=== PATIENT | male | born 1990 | race Caucasian/White ===

== ENCOUNTER 2024-11-03 08:26 | Emergency (ER) | payer OTHER ==
[2024-11-03 09:07] VITALS: BP 112/82; PULSE 64; RESP 20; TEMP 98.1; BMI 29.3
[2024-11-03] MEDS ORDERED: KETOROLAC TROMETHAMINE 30 MG/1 ML VIAL ONE (09:17)
[2024-11-03] MEDS ORDERED: ONDANSETRON 4 MG/2 ML VIAL ONE (09:18)
[2024-11-03 09:22] LABS: ABSOLUTE IMMATURE GRANULOCYTES 0.02 x10^3/uL (0.0-0.031); BASOPHILS # 0.06 x10^3/uL (0.01-0.08); EOSINOPHIL % 1.0 % (0.8-7.0); EOSINOPHILS # 0.08 x10^3/uL (0.04-0.54); MCHC 32.4 g/dl (32.3-36.5); MEAN CELL VOLUME 83.9 fl (79.0-92.2); MEAN PLT VOLUME 11.3 fl (9.4-12.4); MONOCYTE # 0.79 x10^3/uL (0.30-0.82); MONOCYTE % 10.3 % (5.3-12.2); RDW 12.0 % (12.0-15.6)
[2024-11-03] MEDS: KETOROLAC TROMETHAMINE 30 MG/1 ML VIAL IVPUSH ONE (09:22)
[2024-11-03] MEDS: SODIUM CHLORIDE 1,000 ML IV STA (09:23)
[2024-11-03] MEDS: ONDANSETRON 4 MG/2 ML VIAL IVPUSH ONE (09:27)
[2024-11-03 09:31] LABS: INR 1.1 (0.83-1.09); PROTHROMBIN TIME (PATIENT) 12.1 SEC (9.7-13.0)
[2024-11-03 09:34] LABS: ACTIVATED PTT 25.2 SECONDS (25.2-36.5)
[2024-11-03 09:59] LABS: CO2 28.0 mmol/L (21-32); GLUCOSE,RANDOM 92.0 mg/dL (74-106)
[2024-11-03 10:02] LABS: SGOT/AST 28.0 U/L (15-37); SGPT/ALT 43.0 U/L (13-61)
[2024-11-03 10:04] LABS: CREATININE 1.0 mg/dL (0.55-1.3); TOT PROT 6.9 g/dl (6.4-8.2)
[2024-11-03 10:05] LABS: ALK PHOS 99.0 U/L (45-117)
[2024-11-03] MEDS ORDERED: ACETAMINOPHEN 1000 MG/100 ML BAG IVPB ONE (10:16)
[2024-11-03] MEDS ORDERED: SODIUM CHLORIDE 1,000 ML IV STA (10:17)
[2024-11-03 11:18] LABS: EPI CELLS 5 /uL (0-25.1); HYALINE CASTS 2 /uL (0-3.1); URINE APPEARANCE CLEAR; URINE BACTERIA 8 /uL (0-1359); URINE BILIRUBIN NEGATIVE (NEGATIVE); URINE COLOR YELLOW; URINE GLUCOSE (UA) NEGATIVE (NEGATIVE); URINE KETONE NEGATIVE (NEGATIVE); URINE LEUK ESTERASE TRACE (NEGATIVE); URINE NITRITE NEGATIVE (NEGATIVE); URINE PROTEIN 1+ (NEGATIVE); URINE RBC 424 /uL (0-23.9); URINE UROBILINOGEN 1.0 mg/dL (0.2-1.0); URINE WBC 38 /uL (0-25.8)
[2024-11-03 13:48] LABS: HIV INTERPRETATION NEGATIVE (NEGATIVE)
[2024-11-03 13:52] LABS: HCV DIAGNOSTIC IN-HOUSE W/RFLX NON-REACTIVE (NONREACTIVE)
== END 2024-11-03 11:41 | disposition home or self-care (01) ==
LOC: JER 08:26
PROC: 3E0333Z Introduction of Anti-inflammatory into Peripheral Vein, Percutaneous Approach (ICD-10-PCS; principal; 2024-11-03)
PROC: 3E0337Z Introduction of Electrolytic and Water Balance Substance into Peripheral Vein, Percutaneous Approach (ICD-10-PCS; 2024-11-03)
DX: N13.2 Hydronephrosis with renal and ureteral calculous obstruction (principal); R10.32 Left lower quadrant pain
CPT/HCPCS: 36415; 74176-TC; 80053; 81003; 85025; 85610; 85730; 86803; 87086; 87389; 99285-25